=== PATIENT | female | born 1990 | race Two or more races ===

== ENCOUNTER 2022-08-19 10:49 | Emergency (ER) | payer MEDICAID ==
[~2022-08-19] VITALS: Ht 157.5 cm; Wt 83.0 kg
[2022-08-19] MEDS ORDERED: ONDANSETRON HCL/PF 4 MG/2 ML VIAL ONE (11:18)
[2022-08-19] MEDS ORDERED: MORPHINE SULFATE INJ 4 MG/ML DISP.SYRIN ONE (11:19)
--- NOTE | 2022-08-19 11:20 | NUR ---
JACY ESTABLISHED R LAURA 20G.
--- NOTE | 2022-08-19 11:25 | NUR ---
WAIVER CONSENT SIGNED AND PLACED IN PT'S CHART
[2022-08-19] MEDS ORDERED: ONDANSETRON HCL/PF 4 MG/2 ML VIAL IV ONE (11:30)
[2022-08-19] MEDS ORDERED: MORPHINE SULFATE INJ 2 MG/ML DISP.SYRIN IV ONE (11:30)
[2022-08-19] MEDS ORDERED: PRED20TA PO (13:20)
[2022-08-19] MEDS ORDERED: CYCL5TAB PO (13:20)
[2022-08-19] MEDS ORDERED: IBUP-1955 PO (13:20)
[2022-08-19] MEDS ORDERED: HYDR-4209 PO (13:20)
[2022-08-19 13:39] VITALS: BP 141/92
--- NOTE | 2022-08-19 13:39 | NUR ---
IV removed. Catheter intact and site benign. Pressure and 4x4 applied to site. No bleeding noted.Patient discharged to home in stable condition. Written and verbal after care instructions given. Patient verbalizes understanding of instruction.
== END 2022-08-19 13:39 | disposition home or self-care (01) ==
LOC: ER 10:51
DX: S16.1XXA Strain of muscle, fascia and tendon at neck level, initial encounter (principal); M54.12 Radiculopathy, cervical region; Z79.899 Other long term (current) drug therapy; X50.9XXA Other and unspecified overexertion or strenuous movements or postures, initial encounter; Y93.89 Activity, other specified; Y92.89 Other specified places as the place of occurrence of the external cause; Y99.8 Other external cause status
CPT/HCPCS: 99285; 96374; 72125; 96375; L0172; J2270; J2405

== ENCOUNTER → 2023-08-14 | Emergency (ER) | payer MEDICAID ==
[~2023-08-14] VITALS: Ht 157.5 cm; Wt 79.4 kg
[~2023-08-14] MED LIST: CYCL5TAB PO; HYDR-4209 PO; IBUP-1955 PO; KETO10TA2 PO; KETOROLAC TROMETHAMINE 15 MG/ML VIAL ONE; MECL-159 PO; METO-295 PO; METOCLOPRAMIDE HCL 10 MG/2 ML VIAL ONE; ONDA4TAB5 PO; PRED20TA PO; SUMA100T PO; SUMATRIPTAN SUCCINATE 6 MG/0.5 ML VIAL SQ ONE
[2023-08-14] MEDS: IV NS 0.9% 1,000 ML BAG IV ONE (14:40)
[2023-08-14] MEDS: SUMATRIPTAN SUCCINATE 6 MG/0.5 ML VIAL SQ ONE (14:41)
[2023-08-14] MEDS: METOCLOPRAMIDE HCL 10 MG/2 ML VIAL IV ONE (14:42)
[2023-08-14 14:43] LABS: BASOPHILS % (AUTO) 0.7 % (0.0-2.0); EOSINOPHILS # (AUTO) 0.1 K/uL (0.0-0.7); HEMATOCRIT 38 % (33-45); HEMOGLOBIN 12.9 g/dL (11.5-14.8); LYMPHOCYTES # (AUTO) 2.1 K/uL (0.8-4.8); LYMPHOCYTES % (AUTO) 34.7 % (20.0-44.0); MEAN CORPUSCULAR HEMOGLOBIN 29 PG (26.0-33.0); MEAN CORPUSCULAR HGB CONC 34 g/dl (31.0-36.0); MEAN CORPUSCULAR VOLUME 85 fL (82-100); MONOCYTES # (AUTO) 0.4 K/uL (0.1-1.30); MONOCYTES % (AUTO) 7.3 % (2.0-12.0); NEUTROPHILS # (AUTO) 3.3 K/uL (1.8-8.9); NEUTROPHILS % (AUTO) 55.3 % (43.0-81.0); PLATELET COUNT (AUTO) 243 K/uL (150-450); RED BLOOD CELL COUNT(AUTO) 4.44 MIL/uL (4.0-5.2); RED CELL DISTRIBUTION WIDTH 14.7 % (11.5-15.0)
[2023-08-14] MEDS: KETOROLAC TROMETHAMINE 15 MG/ML VIAL IV ONE (14:49)
[2023-08-14 14:55] LABS: CALCIUM, SERUM 9.3 mg/dL (8.5-10.1); CARBON DIOXIDE 25 mmol/L (21-32); CHLORIDE 103 mmol/L (98-107); CREATININE 0.7 mg/dL (0.6-1.3); GLUCOSE 107 mg/dL (74-106); POTASSIUM 3.6 mmol/L (3.5-5.1); SODIUM SERUM 137 mmol/L (136-145); UREA NITROGEN, BLOOD 14 mg/dL (7-18)
[2023-08-14 15:40] VITALS: BP 136/92; TEMP 98.4; O2SAT 100
== END | disposition home or self-care (01) ==
LOC: ER 13:58
DX: G43.909 Migraine, unspecified, not intractable, without status migrainosus (principal); R07.89 Other chest pain; Z79.899 Other long term (current) drug therapy
CPT/HCPCS: 99285; 96374; 71045; 96361; 96375; 93005 ×2; 85025; 80048; 36415; 84484; 96372; J3030; J2765; J7030; J1885

== ENCOUNTER 2024-04-24 06:45 | Emergency (ER) | payer MEDICAID, OTHER ==
[~2024-04-24] VITALS: Ht 157.5 cm; Wt 81.6 kg
[~2024-04-24 06:45] MED LIST changes: -KETOROLAC TROMETHAMINE 15 MG/ML VIAL ONE; -METOCLOPRAMIDE HCL 10 MG/2 ML VIAL ONE; -SUMATRIPTAN SUCCINATE 6 MG/0.5 ML VIAL SQ ONE
[2024-04-24 07:03] VITALS: TEMP 97.8
[2024-04-24 07:31] LABS: BASOPHILS % (AUTO) 0.5 % (0.0-2.0); EOSINOPHILS # (AUTO) 0.1 K/uL (0.0-0.7); EOSINOPHILS % (AUTO) 2.1 % (0.0-6.0); HEMATOCRIT 37 % (33-45); HEMOGLOBIN 12.6 g/dL (11.5-14.8); LYMPHOCYTES # (AUTO) 2.5 K/uL (0.8-4.8); LYMPHOCYTES % (AUTO) 36.3 % (20.0-44.0); MEAN CORPUSCULAR HEMOGLOBIN 29 PG (26.0-33.0); MEAN CORPUSCULAR HGB CONC 34 g/dl (31.0-36.0); MEAN CORPUSCULAR VOLUME 84 fL (82-100); MONOCYTES # (AUTO) 0.5 K/uL (0.1-1.30); NEUTROPHILS # (AUTO) 3.8 K/uL (1.8-8.9); NEUTROPHILS % (AUTO) 54.1 % (43.0-81.0); PLATELET COUNT (AUTO) 205 K/uL (150-450); RED CELL DISTRIBUTION WIDTH 13.5 % (11.5-15.0)
[2024-04-24 07:36] LABS: APPEARANCE,URINE CLEAR (CLEAR); BILIRUBIN,URINE NEGATIVE (NEGATIVE); BLOOD, URINE TRACE-INTA Ery/uL (NEGATIVE); COLOR,URINE YELLOW (YELLOW); KETONES,URINE NEGATIVE (NEGATIVE); LEUKOCYTE ESTERASE ,URINE NEGATIVE (NEGATIVE); NITRITE, URINE NEGATIVE (NEGATIVE); PROTEIN,URINE NEGATIVE (NEGATIVE); UGLUCOSE NEGATIVE (NEGATIVE); UROBILINOGEN,URINE 0.2 EU/dL (0.2)
[2024-04-24 07:41] LABS: ADD URINE CULTURE NO; BACTERIA,URINE Rare /HPF (None Seen); PREGNANCY TEST URINE QUAL NEGATIVE (NEGATIVE); SQUAMOUS EPITHELIAL CELL,UR Rare /HPF (None Seen); WBC,URINE 0-2 /HPF (0-3)
[2024-04-24] MEDS: IV NS 0.9% 1,000 ML BAG IV ONE (07:59)
[2024-04-24] MEDS ORDERED: KETOROLAC TROMETHAMINE 15 MG/ML VIAL ONE (08:04)
[2024-04-24] MEDS: KETOROLAC TROMETHAMINE 15 MG/ML VIAL IV ONE (08:09)
[2024-04-24 08:12] LABS: ALBUMIN 3.6 g/dL (3.4-5.0); BILIRUBIN,DIRECT 0.1 mg/dL (0.0-0.2); BILIRUBIN,TOTAL 0.4 mg/dL (0.2-1.0); CALCIUM, SERUM 8.6 mg/dL (8.5-10.1); CREATININE 0.7 mg/dL (0.6-1.3); POTASSIUM 3.8 mmol/L (3.5-5.1); TOTAL PROTEIN, SERUM 7.5 g/dL (6.4-8.2)
[2024-04-24] MEDS ORDERED: MORPHINE SULFATE INJ 2 MG/ML DISP.SYRIN ONE ×2 (10:00→16:41)
[2024-04-24] MEDS: MORPHINE SULFATE INJ 2 MG/ML DISP.SYRIN IV ONE ×2 (10:02→16:42)
[2024-04-24 18:06] VITALS: BP 145/90; O2SAT 98
== END 2024-04-24 17:00 | disposition home or self-care (01) ==
LOC: ER 07:01
DX: N83.202 Unspecified ovarian cyst, left side (principal); K59.00 Constipation, unspecified; R10.32 Left lower quadrant pain; Z79.52 Long term (current) use of systemic steroids; Z90.49 Acquired absence of other specified parts of digestive tract
CPT/HCPCS: 99285; 74177; 96374; 76856; 96361; 96375; 96376; 85025; 80048; 83605; 83690; 80076; 84703; 81001; 36415; J7030; J7050; J2270 ×2; Q9967; J1885